=== PATIENT | female | born 1975 | race Caucasian/White ===

== ENCOUNTER 2022-11-08 22:07 | Emergency (ER) | payer OTHER ==
[~2022-11-08] VITALS: Ht 160 cm; Wt 70.3 kg
== END 2022-11-09 00:17 | disposition home or self-care (01) ==
LOC: ER 22:07
DX: M62.830 Muscle spasm of back (principal)

== ENCOUNTER 2023-04-11 12:43 | Emergency (ER) | payer OTHER ==
[~2023-04-11] VITALS: Ht 160 cm; Wt 68.0 kg
== END 2023-04-11 16:46 | disposition home or self-care (01) ==
LOC: ER 12:43
DX: S99.929A Unspecified injury of unspecified foot, initial encounter (principal); S99.919A Unspecified injury of unspecified ankle, initial encounter; M62.830 Muscle spasm of back; X58.XXXA Exposure to other specified factors, initial encounter; Y93.39 Activity, other involving climbing, rappelling and jumping off; Y92.9 Unspecified place or not applicable; Y99.9 Unspecified external cause status